=== PATIENT | male | born 1995 | race Two or more races ===

== ENCOUNTER 2022-05-15 00:17 | Emergency (ER) | payer OTHER ==
[~2022-05-15] VITALS: Ht 177.8 cm; Wt 122.5 kg
[2022-05-15] MEDS ORDERED: DICLOFENAC SODI75 MG PO (01:22)
== END 2022-05-15 01:45 | disposition home or self-care (01) ==
LOC: ER 00:17
DX: S83.91XA Sprain of unspecified site of right knee, initial encounter (principal); W18.30XA Fall on same level, unspecified, initial encounter; Y93.9 Activity, unspecified; Y92.9 Unspecified place or not applicable; Y99.9 Unspecified external cause status

== ENCOUNTER 2022-07-28 14:25 | Outpatient (CLI) | payer OTHER ==
[~2022-07-28 14:25] MED LIST: DICLOFENAC SODI75 MG PO
== END 2022-07-28 14:35 | disposition home or self-care (01) ==
LOC: RAD 14:25
PROVIDERS: ATTEND Orthopaedic Surgery
DX: M25.561 Pain in right knee (principal); M79.671 Pain in right foot